=== PATIENT | male | born 1980 | race Caucasian/White ===

== ENCOUNTER 2016-04-11 15:17 | Emergency (ER) | payer OTHER ==
[~2016-04-11] VITALS: Ht 193 cm; Wt 104.3 kg
[2016-04-11 15:20] VITALS: BP 133/73
[2016-04-11] MEDS ORDERED: KETOROLAC TROMETH 60MG/2ML VIAL IM ONE (16:30)
== END 2016-04-11 17:14 | disposition home or self-care (01) ==
LOC: ER 15:26
DX: S70.12XA Contusion of left thigh, initial encounter (principal); V09.20XA Pedestrian injured in traffic accident involving unspecified motor vehicles, initial encounter; Y93.89 Activity, other specified; Y99.8 Other external cause status; Y92.89 Other specified places as the place of occurrence of the external cause
CPT/HCPCS: 73700; 96372; 99284; J1885